=== PATIENT | female | born 1945 | race Caucasian/White ===

== ENCOUNTER 2022-05-16 10:27 | Observation (INO) | payer MEDICARE, BC ==
[2022-05-16] MEDS ORDERED: Albuterol Sulfate 2.5 mg/3 ml Neb ONE ×2 (11:13→11:14)
[2022-05-16] MEDS ORDERED: methylPREDNISolone Sod Succ/PF 125 MG/2 ML VIAL ONE (11:15)
[2022-05-16] MEDS ORDERED: Magnesium 2 GM/50 ML BAG (IN WATER) ONE (11:15)
[2022-05-16 11:28] LABS: ALT (SGPT) 16 U/L (8-55); AST (SGOT) 23 U/L (5-34); Albumin 4.2 g/dL (3.4-4.8); Alkaline Phosphatase 69 U/L (40-110); Anion Gap 15 mmol/L (10-20); BUN (Urea Nitrogen) 7 mg/dL (9.8-20.1); Bilirubin, Total 0.5 mg/dL (0.2-1.2); Calc. Creatinine Clearance 0 mL/min (70-130); Calcium 9.5 mg/dL (7.8-10.44); Carbon Dioxide 21 mmol/L (23-31); Chloride 106 mmol/L (98-107); Estimated GFR 79; Globulin 2.2 g/dL (2.4-3.5); Glucose 88 mg/dL (83-110); Lipase 27 U/L (8-78); Potassium 4.4 mmol/L (3.5-5.1); Protein, Total 6.4 g/dL (5.8-8.1); Sodium 138 mmol/L (136-145)
[2022-05-16 11:29] LABS: #Basophils 0.1 10x3/uL (0.0-0.2); #Eosinphils 1.7 10x3/uL (0.0-0.5); #Monocytes 0.4 10x3/uL (0.0-1.1); #Neutrophils 3.7 10x3/uL (1.5-8.4); %Basophils 1.2 % (0.0-2.0); %Lymphocytes 21.6 % (18.0-47.0); %Neutrophils 48.9 % (40.0-75.0); Hemoglobin 12.3 g/dL (12.0-15.5); Mean Corpuscular HGB CONC 37.4 g/dL (32.0-36.0); Mean Corpuscular Hemoglobin 36.4 pg (27.0-33.0); Mean Corpuscular Volume 97.3 fl (81.6-98.3); Mean Platelet Volume 8.5 fl (7.4-10.4); Platelet Count 335 10x3/uL (150-450); RBC Distribution Width 25.6 % (11.5-14.5); Red Blood Cell (RBC) Count 3.38 10x6/uL (3.90-5.03); White Blood Cell (WBC) Count 7.5 10x3/uL (3.5-10.5)
[2022-05-16 11:49] LABS: Anisocytosis MODERATE=16-30 cells (100X) (0-5/hpf); Ovalocytes SLIGHT = 2-5 cells (100X) (0-1/hpf)
[2022-05-16 11:50] LABS: Platelet Morphology Comment Appears Adequate
[2022-05-16] MEDS ORDERED: Ondansetron ODT 4 MG TAB PO PRN (14:28)
[2022-05-16] MEDS ORDERED: Acetaminophen 650 MG Suppository PR PRN (14:28)
[2022-05-16] MEDS ORDERED: Acetaminophen 325 MG TAB PO PRN (14:28)
[2022-05-16] MEDS ORDERED: Albuterol Sulfate 2.5 mg/3 ml Neb NEB PRN (14:28)
[2022-05-16] MEDS ORDERED: Ondansetron PF 4 MG/2 ML Vial IVP PRN (14:28)
[2022-05-16 17:35] VITALS: BMI 25.0
[2022-05-16] MEDS: methylPREDNISolone Sod Succ 40 MG VIAL IVP SCH ×2 (20:25→22:17)
[2022-05-16] MEDS ORDERED: Atorvastatin Calcium 20 MG TAB PO SCH (21:00)
[2022-05-17] MEDS ORDERED: methylPREDNISolone Sod Succ 40 MG VIAL IVP SCH (04:00)
[2022-05-17 05:16] LABS: Mean Corpuscular HGB CONC 34.3 g/dL (32.0-36.0); Mean Corpuscular Hemoglobin 32.7 pg (27.0-33.0); Mean Corpuscular Volume 95.4 fl (81.6-98.3); Mean Platelet Volume 8.5 fl (7.4-10.4); Platelet Count 347 10x3/uL (150-450); RBC Distribution Width 23.6 % (11.5-14.5); Red Blood Cell (RBC) Count 3.67 10x6/uL (3.90-5.03); White Blood Cell (WBC) Count 7.5 10x3/uL (3.5-10.5)
[2022-05-17 05:29] LABS: Anion Gap 10 mmol/L (10-20); BUN (Urea Nitrogen) 9 mg/dL (9.8-20.1); Calc. Creatinine Clearance 67 mL/min (70-130); Calcium 9.3 mg/dL (7.8-10.44); Carbon Dioxide 23 mmol/L (23-31); Chloride 109 mmol/L (98-107); Estimated GFR 90; Glucose 160 mg/dL (83-110); Sodium 137 mmol/L (136-145)
[2022-05-17 06:23] LABS: MDiff Complete? YES; Platelet Morphology Comment Appears Adequate
[2022-05-17 06:57] LABS: Band 2 % (5-11); Lymphocytes 9 % (21-51); Monocytes 3 % (0-10); Neutrophil 83 % (42-75); Reactive Lymphocytes 3 % (0-10)
[2022-05-17] MEDS ORDERED: Enoxaparin Sodium 40 MG/0.4 ML SYRINGE SC SCH (09:00)
[2022-05-17] MEDS ORDERED: Azithromycin 250 MG TAB PO SCH (09:00)
[2022-05-17 11:30] VITALS: BP 143/65; TEMP 98.3
[2022-05-17] MEDS ORDERED: Budesonide 0.5 MG/2 ML NEB NEB SCH (18:30)
[2022-05-18] MEDS ORDERED: predniSONE 20 MG TAB PO SCH (08:00)
[2022-05-18] MEDS ORDERED: Azithromycin 250 MG TAB PO SCH (09:00)
== END 2022-05-17 14:30 | disposition home or self-care (01) ==
LOC: CSHERS 10:27 → CSHTELE 17:20
PROVIDERS: ADMIT Family Medicine; ATTEND Internal Medicine
DX: J44.1 Chronic obstructive pulmonary disease with (acute) exacerbation (principal); J96.01 Acute respiratory failure with hypoxia; E78.5 Hyperlipidemia, unspecified; F17.210 Nicotine dependence, cigarettes, uncomplicated; Z88.1 Allergy status to other antibiotic agents; Z88.2 Allergy status to sulfonamides; Z79.899 Other long term (current) drug therapy; Z90.710 Acquired absence of both cervix and uterus; Z98.890 Other specified postprocedural states; Z20.822 Contact with and (suspected) exposure to COVID-19
CPT/HCPCS: 71045; 80048; 80053; 83605; 83690; 83880; 84484; 85025 ×2; 87040; 87633; 87798 ×2; 93005; 94640 ×2; 94760 ×4; 96365; 96375; 99285; U0003; U0005; 36415; 96372; 96376; G0378; J1650; J2920; J2930; J3475; J7611; J7620